=== PATIENT | female | born 1980 | race African-American/Black ===

== ENCOUNTER 2018-07-17 00:10 | Inpatient (IN) | payer BC ==
[~2018-07-17] VITALS: Ht 170.2 cm; Wt 77.1 kg
[2018-07-17] MEDS ORDERED: OXYTOCIN/0.9 % SODIUM CHLORIDE 1,000 ML IV SCH ×2 (00:30→07:54)
[2018-07-17] MEDS ORDERED: NALBUPHINE HCL 10 MG/ML AMP IM PRN (00:30)
[2018-07-17] MEDS ORDERED: LR 1,000 ML IV SCH (00:30)
[2018-07-17] MEDS ORDERED: TERBUTALINE SULFATE 1 MG/ML VIAL SUBCUT ONE (01:30)
[2018-07-17 01:32] LABS: HEMATOCRIT 30.5 % (36-48); HEMOGLOBIN 10.1 g/dL (12.0-16.0); MEAN CORPUSCULAR HEMOGLOBIN 28 pg (27-31); MEAN CORPUSCULAR HGB CONC 33 % (32-36); MEAN CORPUSCULAR VOLUME 84 fL (79.0-98.0); PLATELET COUNT (AUTO) 213 K/uL (130-430); RED BLOOD CELL COUNT(AUTO) 3.64 MIL/uL (4.2-6.2); RED CELL DISTRIBUTION WIDTH 14.9 % (9.0-15.0); WHITE BLOOD COUNT (AUTO) 7.2 K/uL (4.8-10.8)
[2018-07-17] MEDS: MISOPROSTOL 100 MCG TABLET (CYTOTEC) VG SCH ×2 (01:45→05:45)
[2018-07-17 02:29] LABS: BAND % (MANUAL) 1 % (0-6); BASOPHILS % (MANUAL) 0 % (0-2); EOSINOPHILS % (MANUAL) 0 % (0-7); LYMPHOCYTES % (MANUAL) 25 % (20-46); MONOCYTES % (MANUAL) 8 % (0-11)
[2018-07-17 03:04] VITALS: BP_SYST 123
[2018-07-17] MEDS ORDERED: ROPIVACAINE 0.2% 0 ML ONE (07:34)
[2018-07-17] MEDS ORDERED: OXYTOCIN/0.9 % SODIUM CHLORIDE 1,000 ML IV ONE (07:54)
[2018-07-17] MEDS ORDERED: OXYCODONE/ACETAMINOPHEN 5-325 TABLET PO PRN ×2 (08:00)
[2018-07-17] MEDS ORDERED: ACETAMINOPHEN 325 MG TABLET PO PRN (08:00)
[2018-07-17] MEDS ORDERED: HYDROCORTISONE 0.5%, 28.35 GM TOPICAL CREAM TP PRN (08:00)
[2018-07-17] MEDS ORDERED: RHO(D) IMMUNE GLOBULIN/MALTOSE 1500 UNITS/1.3 ML (WINHRO) IM PRN (08:00)
[2018-07-17] MEDS ORDERED: LANOLIN 7 GM OINT. TP PRN (08:00)
[2018-07-17] MEDS ORDERED: DERMOPLAST SPRAY TP PRN (08:00)
[2018-07-17] MEDS ORDERED: DIPH-TET-PERTUS Vaccine 0.5 ML VIAL (ADACEL) I.M. PRN (08:00)
[2018-07-17] MEDS ORDERED: METHYLERGONOVINE MALEATE 0.2 MG TABLET PO PRN (08:00)
[2018-07-17] MEDS ORDERED: MEASLES,MUMPS&RUBELLA VACC/PF 12500 UNIT/0.5 ML VIAL SUBQ PRN (08:00)
[2018-07-17] MEDS ORDERED: SENNOSIDES/DOCUSATE SODIUM 1 TAB TABLET(SENOKOT-S) PO PRN (08:00)
[2018-07-17] MEDS ORDERED: WITCH HAZEL LEAF 1 MED.PAD MED.PAD TP PRN (08:00)
[2018-07-17] MEDS ORDERED: ANUSOL 1 EA SUPP.RECT (PREPARATION H) RC PRN (08:00)
[2018-07-17] MEDS ORDERED: LIDOCAINE HCL/PF 1% 10 ML AMPUL INJ ONE (11:04)
[2018-07-17] MEDS: IBUPROFEN 600 MG TABLET PO SCH (18:00)
[2018-07-17] MEDS ORDERED: TEMAZEPAM 15 MG CAPSULE PO PRN (21:00)
[2018-07-18] MEDS: IBUPROFEN 600 MG TABLET PO SCH ×3 (06:00→23:50)
[2018-07-18 08:25] LABS: HEMATOCRIT 27.5 % (36-48); HEMOGLOBIN 8.8 g/dL (12.0-16.0)
[2018-07-18] MEDS: DOCUSATE SODIUM 100 MG CAPSULE PO PRN (23:52)
[2018-07-19] MEDS: IBUPROFEN 600 MG TABLET PO SCH ×2 (06:00→12:28)
[2018-07-19] MEDS: DOCUSATE SODIUM 100 MG CAPSULE PO PRN (12:28)
== END 2018-07-19 16:31 | disposition home or self-care (01) | DRG 775 ==
LOC: SPU 00:10
PROVIDERS: ADMIT Obstetrics & Gynecology; ATTEND Obstetrics & Gynecology
PROC: 10E0XZZ Delivery of Products of Conception, External Approach (ICD-10-PCS; principal; 2018-07-17)
PROC: 0HQ9XZZ Repair Perineum Skin, External Approach (ICD-10-PCS; 2018-07-17)
PROC: 3E0P7VZ Introduction of Hormone into Female Reproductive, Via Natural or Artificial Opening (ICD-10-PCS; 2018-07-17)
DX: O71.4 Obstetric high vaginal laceration alone (principal); Z37.0 Single live birth; Z3A.39 39 weeks gestation of pregnancy
CPT/HCPCS: 36415; 81002-TC; 85007; 85018-TC; 85027; 86592; 86886; 86900; 86901; J2001; J2300; J2590; J2795; J7120